=== PATIENT | female | born 1980 | race American Indian/Alaskan Native ===

== ENCOUNTER → 2021-08-30 | Outpatient (CLI) | payer OTHER | LOC: M WHC 09:22 | PROVIDERS: ATTEND Family Medicine | DX: Z12.31 Encounter for screening mammogram for malignant neoplasm of breast (principal) ==

== ENCOUNTER 2022-05-27 07:09 | Day surgery (SDC) | payer OTHER ==
[~2022-05-27] VITALS: Ht 167.6 cm; Wt 101.6 kg
[~2022-05-27 07:09] MED LIST: AMOX875T2 PO; BENA25CA4 PO; GUAI1CAP PO; LORA-674 PO; MYCO500T PO; TRAL150S SC; xyzal PO
[2022-05-27] MEDS ORDERED: LR 1,000 ML IV SCH ×2 (07:55→10:10)
[2022-05-27] MEDS ORDERED: BUPIVACAINE HCL 0.25% 30ML VIAL As Ordered ONE (08:31)
[2022-05-27] MEDS ORDERED: BACITRACIN OINTMENT 30GM TUBE As Ordered ONE (08:31)
[2022-05-27] MEDS ORDERED: ceFAZolin 2 GM/D5W 50 ML IV BAG As Ordered ONE (08:37)
[2022-05-27] MEDS ORDERED: LIDOCAINE 2% 100MG/5ML SDV (FOR ANES.) As Ordered ONE (09:08)
[2022-05-27] MEDS ORDERED: propofoL 200 MG/20 ML VIAL As Ordered ONE (09:08)
[2022-05-27] MEDS ORDERED: fentaNYL 100 MCG/2 ML INJECTION As Ordered ONE ×2 (09:08→09:09)
[2022-05-27] MEDS ORDERED: ONDANSETRON 4MG 2ML VIAL As Ordered ONE (09:08)
[2022-05-27] MEDS ORDERED: KETOROLAC 60MG 2ML VIAL As Ordered ONE (09:08)
[2022-05-27] MEDS ORDERED: METOCLOPRAMIDE INJ 10MG/2ML VIAL As Ordered ONE (09:08)
[2022-05-27] MEDS ORDERED: ACETAMINOPHEN 1000MG 100ML IV BAG As Ordered ONE (09:08)
[2022-05-27] MEDS ORDERED: MIDAZOLAM INJ 2MG/2ML VIAL As Ordered ONE (09:08)
[2022-05-27] MEDS ORDERED: oxyCODONE 5MG TAB PO PRN (10:10)
[2022-05-27] MEDS ORDERED: fentaNYL 100 MCG/2 ML INJECTION IV PRN (10:10)
[2022-05-27] MEDS ORDERED: ONDANSETRON 4MG 2ML VIAL IV PRN (10:10)
[2022-05-27] MEDS ORDERED: PERC5TAB12 PO (10:27)
== END 2022-05-27 11:47 | disposition home or self-care (01) ==
LOC: M SDC 07:09
PROVIDERS: ATTEND Orthopaedic Surgery Hand Surgery
DX: S61.211A Laceration without foreign body of left index finger without damage to nail, initial encounter (principal); S66.321A Laceration of extensor muscle, fascia and tendon of left index finger at wrist and hand level, initial encounter; S64.491A Injury of digital nerve of left index finger, initial encounter; X58.XXXA Exposure to other specified factors, initial encounter; J30.1 Allergic rhinitis due to pollen; L30.9 Dermatitis, unspecified; K21.9 Gastro-esophageal reflux disease without esophagitis; Z88.5 Allergy status to narcotic agent; Z91.018 Allergy to other foods; Z91.040 Latex allergy status; Z91.013 Allergy to seafood; Z79.899 Other long term (current) drug therapy
CPT/HCPCS: 26440; 26445; 64912; C1762; J0131; J1100; J1885; J2250; J2405; J2765; J3010; S0020

== ENCOUNTER → 2022-12-02 | Outpatient (CLI) | payer OTHER ==
[~2022-12-02] MED LIST changes: +PERC5TAB12 PO
== END ==
LOC: M WHC 13:06
PROVIDERS: ATTEND Family Medicine
DX: Z12.31 Encounter for screening mammogram for malignant neoplasm of breast (principal)